=== PATIENT | male | born 1940 | race Caucasian/White ===

== ENCOUNTER 2018-05-05 19:16 | Inpatient (IN) | payer MEDICARE, OTHER ==
[~2018-05-05] VITALS: Ht 170.2 cm; Wt 74.8 kg
[~2018-05-05 19:16] MED LIST: ASPI-650 PO; HYDR-3240 PO; LISI1TAB3 PO; LISI5TAB7 PO; METF500T17 PO; METO50TA82 PO; NAPR220T77 PO; PRAV40TA2 PO
--- NOTE | 2018-05-05 19:33 | NUR ---
assessment made. ERP at bedside for patient evaluation.
[2018-05-05 19:52] LABS: BASOPHILS % (AUTO) 1 % (0-1); EOSINOPHILS % (AUTO) 2 % (1-7); LYMPHOCYTES # (AUTO) 1.65 x10^3/uL (1-3.4); LYMPHOCYTES % (AUTO) 15 % (22-44); MD NO; MEAN CORPUSCULAR HEMOGLOBIN 31.1 pg (27.5-34.5); MEAN CORPUSCULAR HGB CONC 33.9 g/dL (33.2-36.2); MEAN CORPUSCULAR VOLUME 91.7 fL (81-97); MEAN PLATELET VOLUME 7.3 fL (7.4-10.4); MONOCYTES # (AUTO) 0.81 x10^3/uL (0.2-0.8); MONOCYTES % (AUTO) 8 % (2-9); NEUTROPHILS # (AUTO) 8.04 x10^3/uL (1.8-6.8); NEUTROPHILS % (AUTO) 75 % (42-75); PLATELET COUNT 336 x10^3/uL (130-400); RED BLOOD COUNT 4.74 x10^6/uL (4.38-5.82); RED CELL DISTRIBUTION WIDTH 14.1 % (9.4-14.8)
[2018-05-05 20:00] LABS: ANION GAP 6 mmol/L (5-15); CALCIUM 8.8 mg/dL (8.5-10.1); CHLORIDE 104 mmol/L (98-107); CREATININE 1.97 mg/dL (0.7-1.3)
[2018-05-05 20:04] LABS: TROPONIN I < 0.015 ng/mL (0.000-0.045)
--- NOTE | 2018-05-05 20:06 | NUR ---
EKG done. patient to CT scan.
[2018-05-05] MEDS ORDERED: LIDOCAINE-MPF 1%, 5ML ONE (20:14)
--- NOTE | 2018-05-05 20:52 | NUR ---
senior electronics technician at bedside for wound irrigation.
[2018-05-05] MEDS ORDERED: ONDANSETRON 2MG/ML, 2ML IVPush PRN (21:00)
[2018-05-05] MEDS ORDERED: ONDANSETRON 2MG/ML, 2ML ONE (21:05)
[2018-05-05] MEDS ORDERED: DIPH,PERTUSS(ACELL),TET VAC/PF 0.5 ML IM-VACC ONE ×2 (21:15→21:30)
[2018-05-05] MEDS ORDERED: BACITRACIN ZINC OINT 500U/GM, 0.9 GM ONE (21:18)
--- NOTE | 2018-05-05 21:22 | NUR ---
suturing done. bacitracin applied. medicated for nausea. tetanus shot given. awaiting bed assignment.
[2018-05-05] MEDS ORDERED: LIDOCAINE-MPF 1%, 5ML INFIL ONE (21:30)
--- NOTE | 2018-05-05 21:49 | NUR ---
bed assigned. report to QUE Solares.
[2018-05-05 22:02] VITALS: BP_SYST 103; BP_SYST 123; BP_SYST 134; BP_DIAS 50; BP_DIAS 60; BP_DIAS 81
[2018-05-05] MEDS ORDERED: ASPI81TA45 PO (22:21)
[2018-05-05] MEDS ORDERED: PRAVASTATIN SODIUM 40 MG TABLET PO SCH (23:00)
[2018-05-05] MEDS: INSULIN LISPRO 100 UNITS/ML, PEN SQ-INSULIN SCH (23:30)
[2018-05-05] MEDS: METOPROLOL TARTRATE 50 MG TABLET PO SCH (23:57)
[2018-05-06 00:22] VITALS: BP 106/66
[2018-05-06 02:51] LABS: TROPONIN I < 0.015 ng/mL (0.000-0.045)
[2018-05-06] MEDS ORDERED: ONDANSETRON 2MG/ML, 2ML IVPush PRN (05:00)
[2018-05-06] MEDS ORDERED: ACETAMINOPHEN 325 MG TABLET PO PRN (05:00)
[2018-05-06] MEDS ORDERED: SODIUM CHLORIDE 0.9% 1,000 ML IV SCH (05:30)
[2018-05-06] MEDS: INSULIN LISPRO 100 UNITS/ML, PEN SQ-INSULIN SCH ×4 (07:00→21:04)
[2018-05-06 07:16] VITALS: BP 107/71
[2018-05-06 07:58] LABS: BASOPHILS # (AUTO) 0.07 x10^3/uL (0-0.1); BASOPHILS % (AUTO) 1 % (0-1); EOSINOPHILS # (AUTO) 0.11 x10^3/uL (0-0.4); EOSINOPHILS % (AUTO) 1 % (1-7); LYMPHOCYTES # (AUTO) 1.79 x10^3/uL (1-3.4); LYMPHOCYTES % (AUTO) 20 % (22-44); MD NO; MEAN CORPUSCULAR HEMOGLOBIN 30.5 pg (27.5-34.5); MEAN CORPUSCULAR HGB CONC 33.2 g/dL (33.2-36.2); MEAN CORPUSCULAR VOLUME 91.7 fL (81-97); MEAN PLATELET VOLUME 7.2 fL (7.4-10.4); MONOCYTES # (AUTO) 0.96 x10^3/uL (0.2-0.8); MONOCYTES % (AUTO) 11 % (2-9); NEUTROPHILS # (AUTO) 5.89 x10^3/uL (1.8-6.8); NEUTROPHILS % (AUTO) 67 % (42-75); PLATELET COUNT 313 x10^3/uL (130-400); RED BLOOD COUNT 4.44 x10^6/uL (4.38-5.82); RED CELL DISTRIBUTION WIDTH 13.8 % (9.4-14.8)
[2018-05-06] MEDS ORDERED: metFORMIN 500 MG TABLET PO SCH (08:00)
[2018-05-06] MEDS: LISINOPRIL 10 MG TABLET PO SCH (08:01)
[2018-05-06] MEDS: METOPROLOL TARTRATE 50 MG TABLET PO SCH ×2 (08:01→21:00)
[2018-05-06] MEDS: HYDROCHLOROTHIAZIDE 12.5 MG CAPSULE PO SCH (08:01)
[2018-05-06 08:13] LABS: TROPONIN I < 0.015 ng/mL (0.000-0.045)
[2018-05-06 08:15] LABS: ALANINE AMINOTRANSFERASE 20 U/L (12-78); ALBUMIN 3.8 g/dL (3.4-5.0); ANION GAP 6 mmol/L (5-15); CALCIUM 8.4 mg/dL (8.5-10.1); CHLORIDE 106 mmol/L (98-107); CREATININE 1.65 mg/dL (0.7-1.3)
[2018-05-06 08:17] LABS: ALKALINE PHOSPHATASE 94 U/L (45-117); BILIRUBIN,TOTAL 0.9 mg/dL (0.2-1.0); TOTAL PROTEIN 7.3 g/dL (6.4-8.2)
[2018-05-06 14:40] VITALS: BP 95/55
[2018-05-06] MEDS: SODIUM CHLORIDE 0.9% 3,000 ML IV SCH (15:46)
[2018-05-06 20:28] VITALS: BP 116/60
[2018-05-06] MEDS: PRAVASTATIN 40 MG TABLET PO SCH (20:59)
[2018-05-06] MEDS ORDERED: ZOLPIDEM 5MG TABLET PO PRN (21:00)
[2018-05-07 01:46] VITALS: BP 103/67
[2018-05-07] MEDS: SODIUM CHLORIDE 0.9% 3,000 ML IV SCH ×2 (02:52→12:42)
[2018-05-07 06:01] LABS: BASOPHILS # (AUTO) 0.04 x10^3/uL (0-0.1); BASOPHILS % (AUTO) 1 % (0-1); EOSINOPHILS # (AUTO) 0.19 x10^3/uL (0-0.4); EOSINOPHILS % (AUTO) 2 % (1-7); LYMPHOCYTES # (AUTO) 2.04 x10^3/uL (1-3.4); LYMPHOCYTES % (AUTO) 26 % (22-44); MD NO; MEAN CORPUSCULAR HEMOGLOBIN 31.1 pg (27.5-34.5); MEAN CORPUSCULAR VOLUME 91.5 fL (81-97); MEAN PLATELET VOLUME 7.8 fL (7.4-10.4); MONOCYTES # (AUTO) 0.86 x10^3/uL (0.2-0.8); MONOCYTES % (AUTO) 11 % (2-9); NEUTROPHILS % (AUTO) 60 % (42-75); PLATELET COUNT 285 x10^3/uL (130-400); RED BLOOD COUNT 4.07 x10^6/uL (4.38-5.82); RED CELL DISTRIBUTION WIDTH 13.8 % (9.4-14.8)
[2018-05-07 06:17] LABS: ALANINE AMINOTRANSFERASE 16 U/L (12-78); ALBUMIN 3.1 g/dL (3.4-5.0); ANION GAP 6 mmol/L (5-15); CALCIUM 8.1 mg/dL (8.5-10.1); CHLORIDE 108 mmol/L (98-107); CREATININE 1.79 mg/dL (0.7-1.3)
[2018-05-07 06:19] LABS: ALKALINE PHOSPHATASE 85 U/L (45-117); BILIRUBIN,TOTAL 0.7 mg/dL (0.2-1.0); TOTAL PROTEIN 6.4 g/dL (6.4-8.2)
[2018-05-07] MEDS: INSULIN LISPRO 100 UNITS/ML, PEN SQ-INSULIN SCH ×4 (07:00→20:38)
[2018-05-07] MEDS: METOPROLOL TARTRATE 50 MG TABLET PO SCH ×2 (07:52→21:13)
[2018-05-07] MEDS: HYDROCHLOROTHIAZIDE 12.5 MG CAPSULE PO SCH (07:52)
[2018-05-07] MEDS: LISINOPRIL 10 MG TABLET PO SCH (07:53)
[2018-05-07 08:10] VITALS: BP 116/73
[2018-05-07 12:59] VITALS: BP 128/71
[2018-05-07] MEDS ORDERED: OMNIPAQUE 350 MG/ML, 100ML BOTTLE ONE ×2 (15:10→15:18)
[2018-05-07 20:08] VITALS: BP 120/64
[2018-05-07] MEDS: PRAVASTATIN 40 MG TABLET PO SCH (21:13)
[2018-05-08 02:01] VITALS: BP 137/78
[2018-05-08 08:19] VITALS: BP 132/63
[2018-05-08] MEDS: METOPROLOL TARTRATE 50 MG TABLET PO SCH (08:20)
[2018-05-08] MEDS: LISINOPRIL 10 MG TABLET PO SCH ×2 (08:21→12:15)
[2018-05-08] MEDS: HYDROCHLOROTHIAZIDE 12.5 MG CAPSULE PO SCH (08:22)
[2018-05-08] MEDS ORDERED: CLOPIDOGREL 75 MG TABLET PO SCH (09:00)
[2018-05-08] MEDS: INSULIN LISPRO 100 UNITS/ML, PEN SQ-INSULIN SCH ×2 (09:11→11:29)
[2018-05-08] MEDS ORDERED: CLOP75TA52 PO (17:07)
== END 2018-05-08 17:25 | disposition home or self-care (01) | DRG 64 ==
LOC: ED 20:00 → EDIP 20:56 → 5SO 22:00 → DCLOUNGE 05-08 16:55
PROVIDERS: ADMIT Internal Medicine; ATTEND Internal Medicine
PROC: 0JQ13ZZ Repair Face Subcutaneous Tissue and Fascia, Percutaneous Approach (ICD-10-PCS; principal; 2018-05-05)
DX: I63.9 Cerebral infarction, unspecified (principal); N17.0 Acute kidney failure with tubular necrosis; G93.6 Cerebral edema; G90.8 Other disorders of autonomic nervous system; E78.5 Hyperlipidemia, unspecified; I10 Essential (primary) hypertension; S01.81XA Laceration without foreign body of other part of head, initial encounter; X58.XXXA Exposure to other specified factors, initial encounter; E11.51 Type 2 diabetes mellitus with diabetic peripheral angiopathy without gangrene; M89.9 Disorder of bone, unspecified; Y92.89 Other specified places as the place of occurrence of the external cause; Z95.0 Presence of cardiac pacemaker
CPT/HCPCS: 12011; 36415; 70450; 70460; 71250; 74177; 80048; 80053; 80307; 82040; 82962; 84484; 85025; 90471; 90715; 93005; 93306; 93880; 95819; 96374; G0378; J2405; Q9967; J1815; J7030

== ENCOUNTER 2018-05-11 10:52 | Emergency (ER) | payer MEDICARE, OTHER ==
[~2018-05-11] VITALS: Ht 170.2 cm; Wt 75.5 kg
[~2018-05-11 10:52] MED LIST changes: +ASPI81TA45 PO; +CLOP75TA52 PO
[2018-05-11 11:38] VITALS: BP 119/65
== END 2018-05-11 12:20 | disposition home or self-care (01) ==
LOC: ED 11:48
DX: S01.81XD Laceration without foreign body of other part of head, subsequent encounter (principal); X58.XXXD Exposure to other specified factors, subsequent encounter; E78.5 Hyperlipidemia, unspecified; E11.9 Type 2 diabetes mellitus without complications; I10 Essential (primary) hypertension
CPT/HCPCS: 99281